=== PATIENT | male | born 1955 | race African-American/Black ===

== ENCOUNTER 2018-11-13 08:42 | Emergency (ER) | payer OTHER ==
[2018-11-13] MEDS ORDERED: METOCLOPRAMIDE HCL ORAL SOLN 10 MG/10 ML UDCUP PO ONE (09:23)
[2018-11-13] MEDS ORDERED: MAG HYDROX/AL HYDROX/SIMETH SUSP 30 ML UDCUP PO ONE (09:23)
[2018-11-13] MEDS ORDERED: RINGERS SOLUTION,LACTATED 1,000 ML IV ONE (09:23)
[2018-11-13] MEDS ORDERED: LIDOCAINE 2% VISCOUS SOLN 20 ML UDCUP PO ONE (09:23)
--- NOTE | 2018-11-13 09:29 | ER Document Report ---
ED General - General Chief Complaint: Abdominal Pain Stated Complaint: ABDOMINAL PAIN Time Seen by Provider: 11/13/18 09:02 Primary Care Provider: ESPERANZA LEIVA MD [Primary Care Provider] - Follow up as needed TRAVEL OUTSIDE OF THE [place] IN LAST 30 DAYS: No - HPI Patient complains to provider of: Abdominal pain diarrhea Notes: Abdominal pain ongoing for greater than a month. Patient states also having intermittent diarrhea sent to the ER today for further evaluation by his [place] provider. Patient states hurts mostly in the epigastric and and lower region of his abdomen normally starts hurting before he tries to eat. Patient does state he drinks approximately a case of beer a day she also smokes. Patient is on naproxen and other anti-inflammatory medication according to the patient for headaches. Patient does have a history of blood pressure and elevated cholesterol issues. Patient denies any blood in stools or dark stools. Patient states he has never had a EGD or a colonoscopy performed however is scheduling 1-1 by the [place] in [place]. Patient states he does have a history of peptic ulcer disease however currently is not on any antacid medications no H2 danielle or PPI patient otherwise denies fevers chills chest pain nausea or vomiting - Related Data Allergies/Adverse Reactions: bees Allergy (Severe, Uncoded 06/20/13 17:18) swelling ants Allergy (Intermediate, Uncoded 06/20/13 17:18) swelling Past Medical History - Social History Smoking Status: Unknown if Ever Smoked Family History: Reviewed & Not Pertinent - Past Medical History Cardiac Medical History: Reports: Hx Hypertension - Immunizations Hx Diphtheria, Pertussis, Tetanus Vaccination: Yes Review of Systems - Review of Systems Constitutional: No symptoms reported EENT: No symptoms reported Cardiovascular: No symptoms reported Respiratory: No symptoms reported Gastrointestinal: Abdominal pain Genitourinary: No symptoms reported Male Genitourinary: No symptoms reported Musculoskeletal: No symptoms reported Skin: No symptoms reported Hematologic/Lymphatic: No symptoms reported Neurological/Psychological: No symptoms reported -: Yes All other systems reviewed and negative Physical Exam - Vital signs Vitals: Temp Pulse Resp BP Pulse Ox 98.4 F 72 16 177/89 H 98 11/13/18 08:47 11/13/18 08:47 11/13/18 08:47 11/13/18 08:47 11/13/18 08:47 Interpretation: Normal - General General appearance: Appears well, Alert - HEENT Head: Normocephalic, Atraumatic Eyes: Normal Pupils: PERRL - Respiratory Respiratory status: No respiratory distress Chest status: Nontender Breath sounds: Normal Chest palpation: Normal - Cardiovascular Rhythm: Regular Heart sounds: Normal auscultation Murmur: No - Abdominal Inspection: Normal Distension: No distension Bowel sounds: Normal Tenderness: Tender - Diffuse tenderness no rebound or guarding Organomegaly: No organomegaly - Back Back: Normal, Nontender - Extremities General upper extremity: Normal inspection, Nontender, Normal color, Normal ROM, Normal temperature General lower extremity: Normal inspection, Nontender, Normal color, Normal ROM, Normal temperature, Normal weight bearing. No: Sid's sign - Neurological Neuro grossly intact: Yes Cognition: Normal Orientation: AAOx4 Lucia Coma Scale Eye Opening: Spontaneous Lucia Coma Scale Verbal: Oriented Hilbert Coma Scale Motor: Obeys Commands Hilbert Coma Scale Total: 15 Speech: Normal Motor strength normal: LUE, RUE, LLE, RLE Sensory: Normal - Psychological Associated symptoms: Normal affect, Normal mood - Skin Skin Temperature: Warm Skin Moisture: Dry Skin Color: Normal Course - Re-evaluation Re-evalutation: 11/13/18 09:29 Patient more likely has underlying alcoholic gastritis or gastritis due to his chronic NSAID use. Will check CBC basic laboratory studies and the acute abdominal series. GI cocktail will be given to the patient. 11/13/18 14:52 Review the patient is an acute abdominal series shows ileus versus volvulus. Doubt volvulus patient examination is not consistent no nausea no vomiting no signs of any obstruction but because of the patient's read will obtain a CT scan 11/13/18 14:53 Surgeon pest control chemical technician has been notified agrees with plan CT scan with oral contrast - Vital Signs Vital signs: Temp Pulse Resp BP Pulse Ox 97.9 F 60 20 176/86 H 97 11/13/18 15:32 11/13/18 15:32 11/13/18 15:32 11/13/18 15:32 11/13/18 15:32 - Laboratory Result Diagrams: 11/13/18 09:20 11/13/18 09:20 Laboratory results interpreted by me: 11/13/18 11/13/18 09:20 09:20 RDW 15.1 H Chloride 109 H Discharge - Discharge Clinical Impression: Abdominal pain Condition: Good Disposition: HOME, SELF-CARE Instructions: Abdominal Pain ([facility]), Gastritis ([facility]) Additional Instructions: Your abdominal pain is more likely due to your smoking anti-inflammatory use and alcohol use. More likely have underlying gastritis or inflammation of the stomach lining would recommend starting medication omeprazole as prescribed. Would recommend decreasing your alcohol intake also discussing with your physician about further pain management options other than anti-inflammatory medications may take Tylenol for pain I do believe you will need further evaluation with a scope going down your esophagus and also through your colon. Follow-up with your provider to schedule these procedures. Prescriptions: RX: Omeprazole 20 mg PO DAILY #30 tab.rap. Sucralfate [Carafate 1 gm Tablet] 1 gm PO ACHS #120 tablet Referrals: ESPERANZA LEIVA MD [Primary Care Provider] - Follow up as needed
[2018-11-13 09:46] LABS: ABSOLUTE EOSINOPHILS # (AUTO) 0.1 10^3/uL (0.0-0.6); ABSOLUTE LYMPHOCYTES (AUTO) 1.9 10^3/uL (0.5-4.7); ABSOLUTE MONOCYTES (AUTO) 0.6 10^3/uL (0.1-1.4); ABSOLUTE NEUT (AUTO) 2.8 10^3/uL (1.7-8.2); BASOPHILS % (AUTO) 0.6 % (0-2); EOSINOPHILS % (AUTO) 2.6 % (0-6); HEMATOCRIT 45.4 % (37.9-51.0); HEMOGLOBIN 15.4 g/dL (13.5-17.0); LYMPHOCYTES % (AUTO) 34.9 % (13-45); MEAN CORPUSCULAR HEMOGLOBIN 29.1 pg (27.0-33.4); MEAN CORPUSCULAR HGB CONC 33.8 g/dL (32.0-36.0); MEAN CORPUSCULAR VOLUME 86 fl (80-97); MONOCYTES % (AUTO) 11.4 % (3-13); PLATELET COUNT 243 10^3/uL (150-450); RED BLOOD COUNT 5.28 10^6/uL (4.35-5.55); RED CELL DISTRIBUTION WIDTH 15.1 % (11.5-14.0); SEGMENTED NEUTROPHILS % (AUTO) 50.5 % (42-78); TOTAL CELLS COUNTED % (AUTO) 100 %; WHITE BLOOD COUNT 5.6 10^3/uL (4.0-10.5)
[2018-11-13 10:09] LABS: ALANINE AMINOTRANSFERASE 28 U/L (21-72); ALBUMIN 4.2 g/dL (3.5-5.0); ALKALINE PHOSPHATASE 75 U/L (38-126); ANION GAP 6 (5-19); ASPARTATE AMINO TRANSFERASE 50 U/L (17-59); BILIRUBIN,DIRECT 0.2 mg/dL (0.0-0.4); BILIRUBIN,TOTAL 0.3 mg/dL (0.2-1.3); BLOOD UREA NITROGEN 14 mg/dL (7-20); CARBON DIOXIDE 27 mmol/L (22-30); CHLORIDE 109 mmol/L (98-107); GLUCOSE 96 mg/dL (75-110); LIPASE 83.7 U/L (23-300); POTASSIUM 4.1 mmol/L (3.6-5.0); SODIUM 141.5 mmol/L (137-145); TOTAL PROTEIN 7.2 g/dL (6.3-8.2)
--- NOTE | 2018-11-13 10:39 | RADIOLOGY REPORT (SQ) ---
EXAM DESCRIPTION: ACUTE ABDOMEN SERIES COMPLETED DATE/TIME: 11/13/2018 10:18 am REASON FOR STUDY: abdominal pain COMPARISON: None. NUMBER OF VIEWS: Three views. TECHNIQUE: Frontal chest, supine abdomen and upright/decubitus abdomen radiographic images acquired. LIMITATIONS: None. FINDINGS: CHEST: Lungs clear of infiltrates. FREE AIR: None. No abnormal gas collections. BOWEL GAS PATTERN: Abundant gas and fecal material in the colon. Central loop of gas-filled ahaustra l bowel potentially early sigmoid volvulus although probably ileus. CALCIFICATIONS: No suspicious calcifications. HARDWARE: None in the abdomen. SOFT TISSUES: No gross mass or suggestion of organomegaly. BONES: No acute fracture. No worrisome bone lesions. OTHER: No other significant finding. IMPRESSION: Ileus versus early sigmoid volvulus. TECHNICAL DOCUMENTATION: JOB ID: [id number] [employer]- All Rights Reserved Reading location - IP/workstation name: [email or web address]
[2018-11-13 12:00] LABS: APPEARANCE,URINE CLEAR; BILIRUBIN,URINE NEGATIVE (NEGATIVE); COLOR,URINE YELLOW; GLUCOSE, URINE NEGATIVE (NEGATIVE); KETONES,URINE NEGATIVE (NEGATIVE); LEUKOCYTE ESTERASE,URINE NEGATIVE (NEGATIVE); NITRITE,URINE NEGATIVE (NEGATIVE); PROTEIN,URINE NEGATIVE (NEGATIVE); URINE SPECIFIC GRAVITY 1.021; UROBILINOGEN,URINE NEGATIVE mg/dL (<2.0)
--- NOTE | 2018-11-13 15:19 | RADIOLOGY REPORT (SQ) ---
EXAM DESCRIPTION: CT ABD/PELVIS WITH IV ORAL COMPLETED DATE/TIME: 11/13/2018 3:06 pm REASON FOR STUDY: ileus v volvulus COMPARISON: None. TECHNIQUE: CT scan of the abdomen and pelvis performed with intravenous and oral contrast using bucky eliot scanning technique with dynamic intravenous contrast injection. Images reviewed with lung, soft t issue, and bone windows. Reconstructed coronal and sagittal MPR images reviewed. Delayed images for e valuation of the urinary system also acquired. All images stored on PACS. All CT scanners at this facility use dose modulation, iterative reconstruction, and/or weight based d osing when appropriate to reduce radiation dose to as low as reasonably achievable (ALARA). [facility]: Dose Right [facility]: CareDose [facility]: Dose Right [facility]: Teradose 4D [facility]: [employer] CONTRAST TYPE AND DOSE: contrast/concentration: Isovue 350.00 mg/ml; Total Contrast Delivered: 94.0 ml; Total Saline Delivered: 70.0 ml RENAL FUNCTION: GFR > 60. RADIATION DOSE: CT Rad equipment meets quality standard of care and radiation dose reduction techniq ues were employed. CTDIvol: 9.9 - 11.0 mGy. DLP: 1082 mGy-cm. . LIMITATIONS: None. FINDINGS: LOWER CHEST: No significant findings. No nodules or infiltrates. LIVER: Normal size. No masses. No dilated ducts. SPLEEN: Normal size. No focal lesions. PANCREAS: No masses. No significant calcifications. No adjacent inflammation or peripancreatic fluid collections. Pancreatic duct not dilated. GALLBLADDER: No identified stones by CT criteria. No inflammatory changes to suggest cholecystitis. ADRENAL GLANDS: No significant masses or asymmetry. RIGHT KIDNEY AND URETER: No solid masses. No significant calcifications. No hydronephrosis or hyd roureter. LEFT KIDNEY AND URETER: No solid masses. No significant calcifications. No hydronephrosis or hydr oureter. AORTA AND VESSELS: No aneurysm. No dissection. Renal arteries, SMA, celiac without stenosis. RETROPERITONEUM: No retroperitoneal adenopathy, hemorrhage or masses. BOWEL AND PERITONEAL CAVITY: No obstruction. No visualized masses. No free fluid. No inflammatory ch anges or thickening of bowel wall. APPENDIX: Normal. PELVIS: No significant masses. Normal bladder. No free fluid. ABDOMINAL WALL: No masses. No hernias. BONES: No significant or acute findings. OTHER: No other significant finding. IMPRESSION: No evidence of volvulus or obstruction. Normal appendix. TECHNICAL DOCUMENTATION: JOB ID: [id number] Quality ID # [id number]: Final reports with documentation of one or more dose reduction techniques (e.g., Au tomated exposure control, adjustment of the mA and/or kV according to patient size, use of iterative reconstruction technique) 2010 [employer]- All Rights Reserved Reading location - IP/workstation name: [email or web address]
[2018-11-13] MEDS ORDERED: LANSOPRAZOLE 30 MG TAB.RAP.DR PO ONE (15:25)
[2018-11-13 15:36] VITALS: BP 176/86
== END 2018-11-13 15:38 | disposition home or self-care (01) ==
LOC: ER 08:42
DX: R10.13 Epigastric pain (principal); R10.30 Lower abdominal pain, unspecified; R10.817 Generalized abdominal tenderness; R19.7 Diarrhea, unspecified; F17.200 Nicotine dependence, unspecified, uncomplicated; I10 Essential (primary) hypertension; R51 Headache; Z79.1 Long term (current) use of non-steroidal anti-inflammatories (NSAID); Z87.11 Personal history of peptic ulcer disease; Z91.030 Bee allergy status; Z91.038 Other insect allergy status
CPT/HCPCS: 99284; 96360; 96361; 36415; 87045; 87205; 83690; 85025; 80053; 81001; 87493; 74022; 74177; J3490; J7120